=== PATIENT | female | born 1990 | race American Indian/Alaskan Native ===

== ENCOUNTER 2022-01-22 06:16 | Inpatient (IN) | payer MEDICAID ==
[2022-01-20 12:14] LABS: Hematocrit 35.6 % (30.3-42.9); Hemoglobin 11.6 gm/dl (10.1-14.3); Mean Corpuscular HGB Conc 32 % (30-34); Mean Corpuscular Volume 88 fl (79-97); Platelet Count 263 K/mm3 (140-440); Red Blood Count 4.06 M/mm3 (3.65-5.03)
--- NOTE | 2022-01-22 11:54 | Ultrasound Report ---
US OB BPP wo non-stress, US OB limited INDICATION / CLINICAL INFORMATION: TERM , SCHEDULED C/SECTION - BPP. COMPARISON: None available. FINDINGS: BREATHING MOVEMENT = 2 GROSS BODY MOVEMENT = 2 TONE = 2 QUALITATIVE AMNIOTIC FLUID VOLUME = 2 TOTAL BIOPHYSICAL SCORE = 8/8 AMNIOTIC FLUID INDEX (cm) = 15.9 PRESENTATION: Cephalic. HEART RATE (beats per minute): 134 Additional findings: Anterior placenta is free of the os. IMPRESSION: 1. biophysical profile = 8 2. Normal amniotic fluid index measuring 15.9 cm. Signer Name: Costa Ybarra MD Signed: 01/22/2022 11:50 AM Workstation Name: [id number]
[2022-01-22] MEDS ORDERED: FAMOTIDINE 20 MG/2 ML INJ IV ONE (14:40)
[2022-01-22] MEDS ORDERED: METOCLOPRAMIDE 10 MG/2 ML INJ IV ONE (14:40)
[2022-01-22] MEDS ORDERED: BICITRA ORAL LIQD 30ML PO ONE (14:40)
[2022-01-22] MEDS ORDERED: LACTATED RINGERS 1,000 ML IV SCH (14:45)
[2022-01-22] MEDS ORDERED: OXYTOCIN DRIP 30 UNITS/500 ML BAG IV SCH (15:00)
[2022-01-22] MEDS ORDERED: ceFAZolin/Water 2 GM/20 ML 2 GM/20 ML SYRINGE IV NR (15:00)
--- NOTE | 2022-01-22 16:15 | History and Physical Report ---
History of Present Illness Date of examination: 01/22/22 Date of admission: 01/22/22 09:47 Chief complaint: scheduled repeat c/section History of present illness: at 39.4wks by LMP c/w U/S. Pt c/o irreg contractions. Denies LOF or vag bleed. Desires no future fertility and has valid tubal papers. Pt admits to movement. labs with HSV+, pt denies active lesions, GBS+, O positive, neg scree, pap wnl, rubella immune, VDRL non-reactive, UCx neg, HepBsAg neg, HIV neg, GC/Chlam neg, 1hrgtt wnl, 24hr prot in 11/01/21 was 215. Past History Past Medical History: other (morbid obesity, leucocytosis with wbc at 18 and unknown cause.) Past Surgical History: section (x1) Social history: no significant social history - Obstetrical History Expected Date of Delivery: 01/25/22 Actual Gestation: 39 Week(s) 4 Day(s) : 4 Hx # Term Pregnancies: 1 Number of Pregnancies: 1 Spontaneous Abortions: 1 Number of Living Children: 2 Medications and Allergies Allergies Allergy/AdvReac Type Severity Reaction Status Date / Time No Known Allergies Allergy Verified 01/15/22 18:43 Home Medications Medication Instructions Recorded Confirmed Last Taken Type Vits96/Iron Fum/Folic 1 tab PO DAILY 02/08/14 01/15/22 02/07/14 10:00 History [ Tablet] Active Meds: Active Medications Lactated Ringer's (Lactated Ringers) 1,000 mls @ 2,250 mls/hr IV PREOP ROBBY Stop: 01/23/22 15:12 Oxytocin/Sodium Chloride (Pitocin/Ns 30 Unit/500ml) 30 units in 500 mls @ 0 mls/hr IV TITR ROBBY; Protocol Cefazolin Sodium (Ancef/Sterile Water 2 Gm/20 Ml) 2 gm in 20 mls @ 80 mls/hr IV PREOP NR; Protocol Stop: 01/22/22 23:59 Review of Systems All systems: negative (negative) - Vital Signs Vital signs: Vital Signs Temp Pulse Resp BP Pulse Ox 98.4 F 98 H 18 134/90 99 01/20/22 10:30 01/20/22 10:30 01/20/22 10:30 01/20/22 10:30 01/20/22 10:30 Temp Pulse Resp BP Pulse Ox 98.1 F 83 18 125/77 100 01/22/22 10:23 01/22/22 16:00 01/22/22 10:23 01/22/22 10:23 01/22/22 16:00 - Physical Exam Breasts: Positive: deferred Cardiovascular: Regular rate Lungs: Positive: Normal air movement Abdomen: Positive: soft (non-tender gravid) Genitourinary (Female): Positive: normal external genitalia Vulva: both: normal Vagina: Positive: normal moisture Uterus: Positive: enlarged - Obstetrical FHR: category 1 Uterine Contraction Monitor Mode: External Cervical Dilatation: 7 Cervical Effacement Percentage: 70 station: -2 Uterine Contraction Pattern: Irregular Uterine Contraction Intensity: Moderate Results Result Diagrams: 01/20/22 10:45 All other labs normal. Assessment and Plan term IUP in latent labor with previous c/s x1, successful x1 and pt declines TOLAC; pt desires no future fertility and has valid tubal papers; pt fo r repeat c/section when staffing available per charge nurse 1. Admit to labor and delivery for repeat c/section and BTL 2. Discussed the risks, benefits and alternatives of contraception 3. All questions encouraged and answered
--- NOTE | 2022-01-23 05:28 | Anesthesia Day of Surgery ---
Anesthesia Day of Surgery - Day of Surgery Patient Examined: Yes Patient H&P Reviewed: Yes Patient is NPO: Yes
--- NOTE | 2022-01-23 05:34 | Anesthesia Consultation ---
Anesthesia Consult and Med Hx Date of service: 01/23/22 - Airway Anesthetic Teeth Evaluation: Poor ROM Head & Neck: Adequate Mental/Hyoid Distance: Adequate Mallampati Class: Class II Intubation Access Assessment: Probably Good - Pulmonary Exam CTA: Yes - Cardiac Exam Cardiac Exam: RRR - Pre-Operative Health Status ASA Pre-Surgery Classification: ASA3 Proposed Anesthetic Plan: Epidural, Spinal - Pulmonary Hx Smoking: No Hx Asthma: No COPD: No Hx Pneumonia: No - Cardiovascular System Hx Hypertension: No - Central Nervous System Hx Seizures: No Hx Back Pain: Yes (PDPH with last Epidural, difficult placement) Hx Psychiatric Problems: No - Gastrointestinal Hx Gastroesophageal Reflux Disease: Yes - Endocrine Hx Renal Disease: No Hx End Stage Renal Disease: No Hx Hypothyroidism: No Hx Hyperthyroidism: No - Hematic Hx Anemia: No Hx Sickle Cell Disease: No - Other Systems Hx Alcohol Use: No Hx Cancer: No Hx Obesity: Yes
[2022-01-23] MEDS ORDERED: METOCLOPRAMIDE 10 MG/2 ML INJ ONE (08:10)
[2022-01-23] MEDS ORDERED: FAMOTIDINE 20 MG/2 ML INJ IV ONE ×2 (08:11→08:30)
[2022-01-23] MEDS ORDERED: ONDANSETRON 4 MG/2 ML INJ ONE (08:23)
[2022-01-23] MEDS ORDERED: METOCLOPRAMIDE 10 MG/2 ML INJ IV ONE (08:30)
--- NOTE | 2022-01-23 08:30 | Event Note ---
Date: 01/23/22 pt seen last evening after she ate a meal by her , hence surgery rescheduled for this morning. FHR remained category I and pt with irregular contractions.
[2022-01-23] MEDS ORDERED: ceFAZolin/Water 2 GM/20 ML 2 GM/20 ML SYRINGE IV ONE (08:53)
[2022-01-23] MEDS ORDERED: WATER FOR IRRIG STERILE 1,500 ML BOTTLE IR ONE (08:57)
[2022-01-23] MEDS ORDERED: SODIUM CHLORIDE 0.9% IRR 1,500 ML BOTTLE IR ONE (08:57)
[2022-01-23] MEDS ORDERED: ceFAZolin/STERILE WATER 2 GM/20 ML SYRINGE IV ONE (09:00)
[2022-01-23] MEDS ORDERED: BUPIVACAINE/PF (0.5%) 5 MG/1 ML 30 ML VIAL INFILTRATI ONE (09:11)
[2022-01-23] MEDS ORDERED: dexAMETHasone 20 MG/5 ML VIAL ONE (09:58)
[2022-01-23] MEDS ORDERED: OXYTOCIN DRIP 30 UNITS/500 ML BAG IV ONE (10:10)
--- NOTE | 2022-01-23 10:17 | Procedure Note ---
OB Delivery Note - Delivery Date of Delivery: 01/23/22 Estimated blood loss: other (617cc per QBL) - Section Preop diagnosis: repeat , desires sterilization Postop diagnosis: same section procedure: repeat low transverse, bilateral tubal ligation (via salpingectomy) Disposition: floor Complications: none Narrative: Date: 01/23/22 Surgeon: Jenna Godinez MD Preop Dx:IUP at 39.5wks, latent labor at 4cm; previous c/s x1; declines TOLAC; Desires permanent sterilization Postop Dx: same Procedure : Repeat Low transverse c/section and bilateral tubal ligation via salpingectomy Anesthesia: Epidural Intake: 2400cc Output: 250cc concentrated pre and post delivery EBL: 617cc by QBL After the risks, benefits and alternatives of procedure discussed, patient signed consents and was taken to the operating room. Pt was given epidural anesthesia. After same was adequate, patient was prepped and draped in the usual sterile fashion. Cortes catheter in place and draining concentrated urine. Pt was given prophylactic antibiotic per protocol and time out was done Pfannenstiel skin incision was made and taken sharply to the fascia and the incision extended using electrocautery. Superior edge of the fascia was grasped with francis clamps and the rectus muscle using blunt dissection and also using electrocautery. Lower portion of the fascia also with electrocautery. Rectus muscle in the midline and Peritoneal cavity entered sharply and extended with good visualization of the bladder. The bladder flap was created sharply using metzenbaum scissors. Lower uterine segment then entered transversely and amniotic sac entered using allys clamps. Uterine incision extended using bandage scissors. Infant delivered, bulb suctioned, cord clamped and baby handed to waiting pediatricians. Placenta then delivered completely and uterine cavity cleared of all clots and debri. The uterus was exteriorized and closed in 2 layers using 0-monocryl] suture in a running locked fashion and then an additional layer of imbrication suture. Excellent hemostasis noted. Attention turned to left fallopian tube and same followed to it's fimbriated end. Avascular portion of the mesosalpinx was entered and distal segment of tube with fimbriae excised and remaining free ends doubly ligated with 0-vicryl suture. In a similar manner the right tube was excised and doubly ligated and hemostasis remained excellent. The gutters were cleared of clots and debri, surgicel powder placed along the incision site and anterior peritoneum with scar and rectus muscle closed with 0- vicryl suture in a running fashion. Rectus fascia closed with 0-vicryl suture and subcutaneous tissue copiously irrigated with normal saline and re-approximated using 3-0 vicryl suture. Excellent hemostasis remains. The skin was closed with 4-0 monocryl suture and steristrips placed with pressure dressing. Sponge, lap, instrument and needle counts x2 were normal. Patient tolerated the procedure well and was taken to recovery room stable. Findings: Viable female] , APGARS 8/9 and weight 2890g. Normal uterus, tubes and ovaries bilaterally. - A at 1 minute: 8 at 5 minutes: 9 Infant Gender: Female (wt 2890g)
--- NOTE | 2022-01-23 10:30 | Progress Note ---
Spinal Anesthesia Block - Spinal Anesthesia Block Start Time: 08:31 Stop Time: 08:36 Performed by:: LISA FELIX Procedure: Patient placed in sitting position with monitors applied. Timeout performed immediately before start of procedure. Prep/drape in usual sterile fashion. Skin localized 3 mL 1% lidocaine at L[2]-L[3] interspace. 17-gauge Tuohy epidural needle advanced to KEYSHAWN with saline at [8] cm. No blood/CSF noted via epidural needle. 25g spinal needle advanced into intrathecal space until clear, free flowing CSF noted. 0.5cc 0.75% hyperbaric bupivacaine + 0.5cc sterile saline injected into intrathecal space. Spinal needle removed and epidural catheter advanced to [12] cm. Negative aspiration for blood and CSF via catheter, negative response to test dose 3 ml 1.5% lidocaine w/ epi. Sterile dressing applied followed by tape reinforcement. Patient tolerated procedure well. No immediate complications noted.
[2022-01-23] MEDS ORDERED: OXYTOCIN DRIP 30 UNITS/500 ML BAG IV SCH ×2 (10:40→13:00)
[2022-01-23] MEDS ORDERED: HYDROmorphone 1 MG/1 ML INJ IV PRN (11:08)
[2022-01-23] MEDS ORDERED: NALOXONE 0.4 MG/1 ML INJ IV PRN ×2 (11:08→13:00)
--- NOTE | 2022-01-23 11:10 | Progress Note ---
Regional Anesthesia Block - Regional Anesthesia Block Start Time: 11:00 Stop Time: 11:05 Performed By:: LISA FELIX Procedure: Patient consented for TAP block for post surgical pain management. Patient identified, monitors placed, and time out performed. TAP identified bilaterally via ultrasound. Skin prepped bilaterally with [chlorhexidine] and [22g stimuplex] needle advanced to the TAP. [Marcaine 0.25% 30ml] injected under ultrasound guidance on the [left] side. [Marcaine 0.25% 30ml] injected under ultrasound guidance on the [right] side. Negative aspiration every 5mL, No change in heart rate or rhythm. Patient tolerated the procedure well. No apparent complications seen.
[2022-01-23] MEDS: HYDROmorphone 1 MG/1 ML INJ IV PRN ×3 (11:13→15:55)
[2022-01-23] MEDS ORDERED: miSOPROStol 200 MCG TAB ONE (11:44)
[2022-01-23] MEDS ORDERED: METHYLERGONOVINE MALEATE 0.2 MG/ML VIAL IM ONE (11:58)
[2022-01-23] MEDS ORDERED: WITCH HAZEL/ GLYCERIN PAD TP PRN (12:00)
[2022-01-23] MEDS ORDERED: LANOLIN/ZINC/DIMETHICONE (LANSINOH) 7 GM TP PRN (13:00)
[2022-01-23] MEDS ORDERED: SIMETHICONE 80 MG CHEW TAB PO PRN (13:00)
[2022-01-23] MEDS ORDERED: ONDANSETRON 4 MG/2 ML INJ IV PRN (13:00)
[2022-01-23] MEDS ORDERED: IBUPROFEN 800 MG TAB PO PRN (13:00)
[2022-01-23] MEDS ORDERED: IBUPROFEN 600 MG TAB PO PRN (13:00)
[2022-01-23] MEDS ORDERED: HYDROCORTISONE 25 MG RECTAL SUPP PR PRN (13:00)
[2022-01-23] MEDS ORDERED: PROMETHAZINE 25 MG RECT SUPP PR PRN (13:00)
[2022-01-23] MEDS: MORPHINE 4 MG/1 ML INJ IV PRN ×2 (13:47→20:02)
--- NOTE | 2022-01-23 16:28 | Event Note ---
Date: 01/23/22 nurse called me earlier stating pt passed gold size blood clot, pt given cytotec 800mcg per rectum and currently receiving IV pitocin. Bimanual exam done and 20cc of dark clot removed from cervical os and no trickling of blood seen. Urine output 700cc much clearer than surgery earlier. Pt comfortable after nurse gave her IV dilaudid for severe pain inspite of current tap block. Will continue routine postop care. Pt remains with vitals within normal range. 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
[2022-01-23] MEDS ORDERED: D5W/LACTATED RINGERS 1,000 ML IV SCH (20:00)
[2022-01-23] MEDS ORDERED: MAGNESIUM HYDROXIDE (MOM) ORAL LIQD UDC PO PRN (22:00)
[2022-01-23] MEDS ORDERED: SENNOSIDES 8.6 MG TAB PO PRN (22:00)
[2022-01-23] MEDS: oxyCODONE /ACETAMINOPHEN 5-325MG TAB PO PRN (22:37)
[2022-01-24] MEDS: oxyCODONE /ACETAMINOPHEN 5-325MG TAB PO PRN ×4 (03:13→21:04)
[2022-01-24 04:35] LABS: Hematocrit 32.9 % (30.3-42.9); Hemoglobin 10.4 gm/dl (10.1-14.3); Mean Corpuscular HGB Conc 32 % (30-34); Mean Corpuscular Volume 89 fl (79-97); Platelet Count 238 K/mm3 (140-440); Red Blood Count 3.71 M/mm3 (3.65-5.03); Red Cell Distribution Width 15.2 % (13.2-15.2)
[2022-01-24 05:33] LABS: Basophils % (Manual) 0 % (0.0-1.8); Eosinophils % (Manual) 0 % (0.0-4.3); Platelet Estimate Consistent w Auto; RBC Morphology Normal; Total Cells Counted 100
[2022-01-24] MEDS: FERROUS SULFATE 325 MG TAB PO SCH (09:59)
--- NOTE | 2022-01-24 13:12 | Post Anesthesia Evaluation ---
- Post Anesthesia Evaluation Patient Participated: Yes Airway Patent: Yes Stable Respiratory Function: Yes Nausea/Vomiting: No Temp > 96.8F: Yes Pain Manageable: Yes Adequeate Hydration: Yes Anesthesia Complications: No Block Receding Appropriately: Yes Patient on Ventilator: No
[2022-01-24] MEDS ORDERED: diphenhydrAMINE 50 MG CAP PO PRN (13:13)
--- NOTE | 2022-01-24 14:33 | Progress Note ---
Assessment and Plan + void A: POD # 1 -stable P: Regular diet Ambulate Continue post op care Subjective - Subjective Date of service: 01/24/22 Principal diagnosis: Repeat - POD # 1- stable Patient reports: appetite normal : doing well Objective - Vital Signs Latest vital signs: Vital Signs Temp Pulse Resp BP Pulse Ox Pulse Ox 01/24/22 08:26 97.9 F 66 18 124/72 100 01/24/22 04:32 98.1 F 67 20 118/70 97 01/24/22 03:13 20 01/24/22 00:33 98.2 F 70 20 120/67 99 01/23/22 22:37 20 01/23/22 20:04 98.9 F 79 20 128/78 99 01/23/22 20:02 20 01/23/22 19:35 99 01/23/22 16:34 97.4 F L 69 16 122/67 96 Intake and Output 01/23/22 01/24/22 01/24/22 22:59 06:59 14:59 Intake Total 220 220 120 Output Total 900 800 700 Balance -680 -580 -580 Intake: IV 100 100 ceFAZolin 2 GM In NaCl 0. 100 100 9% 100 ml @ 200 mls/hr IV Q8H [facility] Rx#:[id number] Oral 120 120 Intake, Free Water 120 Output: Urine 900 800 700 Indwelling Catheter 900 Void 800 700 Other: Total, Intake Amount 120 120 Total, Output Amount 900 800 700 # Voids Void 1 2 - Exam Breasts: Present: deferred Cardiovascular: Present: Regular rate Abdomen: Present: soft Uterus: Present: fundal height below umbilicus Extremities: Present: normal Deep Tendon Reflex Grade: Normal +2 Incision: Present: dressed - Labs Labs: Abnormal lab results 01/24/22 Range/Units 04:15 WBC 24.8 H (4.5-11.0) K/mm3 Seg Neuts % (Manual) 85.0 H (40.0-70.0) % Lymphocytes % (Manual) 11.0 L (13.4-35.0) % Seg Neutrophils # Man 21.1 H (1.8-7.7) K/mm3 Monocytes # (Manual) 1.0 H (0.0-0.8) K/mm3
[2022-01-25] MEDS: oxyCODONE /ACETAMINOPHEN 5-325MG TAB PO PRN ×2 (02:03→12:06)
[2022-01-25 09:10] VITALS: BP 134/72
[2022-01-25] MEDS: FERROUS SULFATE 325 MG TAB PO SCH (12:05)
--- NOTE | 2022-01-25 13:01 | Progress Note ---
Assessment and Plan A: POD #2 Stable P: Follow Routine PostOp Orders D/C home today per patient request RTO in one Week Subjective - Subjective Date of service: 01/25/22 Principal diagnosis: Repeat - POD # 1- stable Patient reports: appetite normal, voiding normally, pain well controlled, flatus, bowel movement, ambulating normally [place]: doing well Objective - Vital Signs Latest vital signs: Vital Signs Temp Pulse Resp BP Pulse Ox Pulse Ox 01/25/22 08:05 98.2 F 71 16 134/72 99 01/25/22 03:00 99 01/25/22 02:03 98 01/25/22 00:20 98.0 F 75 20 140/78 100 01/24/22 22:00 99 01/24/22 21:04 18 99 01/24/22 19:30 99 01/24/22 16:42 97.8 F 65 18 117/76 98 Intake and Output 01/24/22 01/25/22 01/25/22 22:59 06:59 14:59 Intake Total 360 960 240 Balance 360 960 240 Intake: Oral 360 600 240 Intake, Free Water 360 Other: Total, Intake Amount 360 600 240 # Voids Void 3 3 1 - Exam Breasts: Present: normal Cardiovascular: Present: Regular rate Lungs: Present: Clear to auscultation, Normal air movement Abdomen: Present: normal appearance, soft, normal bowel sounds Uterus: Present: normal, firm, fundal height below umbilicus Extremities: Present: normal Incision: Present: normal, dry, intact
--- NOTE | 2022-01-25 13:03 | Discharge Summary ---
Providers - Providers Date of Admission: 01/22/22 09:47 Date of discharge: 01/25/22 Attending physician: PETE WIGGINS Primary care physician: PETE WIGGINS Hospitalization Reason for admission: section Delivery: Procedure: bilateral tubal ligation, repeat low transverse Episiotomy: none Laceration: none Incision: normal, dry, intact Other procedures: none complications: none Discharge diagnosis: IUP at term delivered [place] baby: female Condition at discharge: Good Disposition: 01 HOME / SELF CARE / HOMELESS Plan - Provider Discharge Summary Activity: routine, no sex for 6 weeks, no heavy lifting 4 weeks, no strenuous exercise Diet: routine Instructions: routine Additional instructions: [] Smoking cessation referral if applicable(refer to patient education folder for contact #) [] Refer to [facility]'s [facility] Center Booklet Call your doctor immediately for: * Fever > 100.5 * Heavy vaginal bleeding ( >1 pad per hour) * Severe persistent headache * Shortness of breath * Reddened, hot, painful area to leg or breast * Drainage or odor from incision. * Keep incision clean and dry at all times and follow doctor's instructions regarding bathing/showering - Follow up plan Follow up: PETE WIGGINS MD [Primary Care Provider] - 7 Days
== END 2022-01-25 14:45 | disposition home or self-care (01) | DRG 765 ==
LOC: APU 09:47 → OB 01-23 11:42
PROVIDERS: ADMIT Obstetrics & Gynecology; ATTEND Obstetrics & Gynecology
PROC: 10D00Z1 Extraction of Products of Conception, Low, Open Approach (ICD-10-PCS; principal; 2022-01-23)
PROC: 0UB70ZZ Excision of Bilateral Fallopian Tubes, Open Approach (ICD-10-PCS; 2022-01-23)
PROC: 3E0T3BZ Introduction of Anesthetic Agent into Peripheral Nerves and Plexi, Percutaneous Approach (ICD-10-PCS; 2022-01-23)
DX: O34.211 Maternal care for low transverse scar from previous cesarean delivery (principal); O98.32 Other infections with a predominantly sexual mode of transmission complicating childbirth; Z3A.39 39 weeks gestation of pregnancy; Z20.822 Contact with and (suspected) exposure to COVID-19; Z37.0 Single live birth; O99.62 Diseases of the digestive system complicating childbirth; K21.9 Gastro-esophageal reflux disease without esophagitis; O99.824 Streptococcus B carrier state complicating childbirth; A60.00 Herpesviral infection of urogenital system, unspecified
CPT/HCPCS: 36415; 76815; 76819; 85007; 85025; 85027; 86592; 86850; 86900; 86901; 88302; G0378; J3490; J7060; J7121; J0690; J1100; J1170; J2210; J2270; J2405; J2765; J7120; U0003